=== PATIENT | male | born 1935 | race Caucasian/White ===

== ENCOUNTER → 2017-01-04 | Outpatient (CLI) | payer OTHER ==
[~2017-01-04] VITALS: Ht 182.9 cm; Wt 53.5 kg
[~2017-01-04] MED LIST: ACETYLCYSTE200 MG/M2 INH; ARTIFICIAL TEAR15 M1 OPHTHALMIC; ATROVENT HFA14 GM INH; EUCERIN CREME57 GM TOP; HEPARIN SO5000 UNIT2 SUBQ; IPRAT-ALBUT 0.5-3 ML IH; IPRATROPIUM BRO15 ML INH; ISOSOURCE 1.51000 ML PER TUBE; MELATONIN3 MG PER TUBE; MEROPENEM-500 MG/50 IVPB; NOVOLOG100 UNIT/M SUBQ; OMEPRAZOLE40 MG PER TUBE; PERIDEX15 ML SWISH&SPIT; REGLAN 10 MG TA10 MG IV PUSH; ROBITUSSIN100 MG/53 PER TUBE; TYLENOL325 MG PER TUBE; WATER PER TUBE
--- NOTE | ~2017-01-04 | EKG ---
[address] [place] [address] ELECTROCARDIOGRAM REPORT Name: JABIER NAVARRO Room #: [facility]#: [id number] Admission: 01/04/17 Attend Phys: Mario Trinidad MD, F Discharge: Date of : 37 Report #: [id number] THIS REPORT FOR: //name// [facility] Test Date: 2017-01-04 Test Time: 07:25:53 Pat Name: JABIER NAVARRO Department: Room: Gender: [employer] Worker: GREGORY : 1935 Requested By: Mario Trinidad Order Number: [id number] MD: Cedrick Rodriguez Measurements Intervals [place] Rate: 106 P: 51 MO: 160 QRS: 48 QRSD: 80 T: 69 QT: 325 QTc: 432 Interpretive Statements Sinus tachycardia Left ventricular hypertrophy Anterior Q waves, possibly due to LVH No previous ECG available for comparison Electronically Signed On 01-05-2017 8:43:29 CDT by Cedrick Rodriguez [email or web address] <ELECTRONICALLY SIGNED> By: Cedrick Rodriguez MD, [facility] 01/05/17 0843 0725 0725 Cedrick Rodriguez MD, FACC /EPI
--- NOTE | ~2017-01-04 | O ---
[facility] [place] [address] OPERATIVE REPORT Name: JABIER NAVARRO Room #: [facility].#: [id number] Admission: 01/04/17 Attend Phys: Mario Trinidad MD, F Discharge: Date of : 37 Report #: [id number] THIS REPORT FOR: //name// CC: FAM unknown Mario Trinidad DATE OF SERVICE: 01/04/2017 SURGEON: Mario Trinidad M.D. PREOPERATIVE DIAGNOSES: Malnutrition, dysphagia with aspiration, failure to thrive and severe dementia. POSTOPERATIVE DIAGNOSES: Malnutrition, dysphagia with aspiration, failure to thrive and severe dementia. PROCEDURE: EGD with 24-Eth[place]ian pull-type percutaneous endoscopic gastrostomy. ANESTHESIA: Monitored anesthetic care (propofol 80 mg and ketamine 50 mg). ESTIMATED BLOOD LOSS: 2 mL. SPECIMEN: None. COMPLICATIONS: None appreciated. INDICATIONS FOR PROCEDURE: This is a severely demented 81-year-old male patient who was malnourished and has dysphagia with recurrent episodes of aspiration. As a result of this, he has failure to thrive and PEG tube placement has been requested and is indicated. DESCRIPTION OF PROCEDURE: After the benefits and risks of the procedure were explained to the patient's durable power of disability attorney, which include but are not limited to risks of bleeding, infection, postoperative pain and postoperative expectations, informed consent was obtained. The patient was identified in the preoperative holding area. He was given IV antibiotics as documented in the chart in line with the SCIP protocol. The patient was then taken to the procedure room, where he was placed in the supine position. A time-out was performed to identify the correct patient and procedure. The patient was given IV sedation. A bite block was placed. When the patient was adequately sedated, the gastroscope was inserted into the patient's oropharynx and passed down the esophagus, where the GE junction and Z-line were measured at 40 cm from the teeth. The scope was advanced into the stomach, then beyond the pylorus to the duodenum. The scope was slowly withdrawn. The duodenal papilla was normal. The duodenum and stomach showed no polyps, masses, diverticuli or ulcers. The scope was retroflexed while in the antrum of the stomach and the cardia was [facility] [address] [place] [address] OPERATIVE REPORT Name: JABIER NAVARRO Room #: [facility]#: [id number] Admission: 01/04/17 Attend Phys: Mario Trinidad MD, F Discharge: Date of : 37 Report #: [id number]. A small hiatal hernia was present. The scope was then straightened and slightly withdrawn. The stomach was insufflated with carbon dioxide. Transillumination was present as the light from the gastroscope was easily seen through the patient's abdominal wall. There was good ballotability. The planned area for PEG tube placement was chosen to the left of midline in the upper abdomen. The abdomen was then prepped and draped in the standard sterile fashion. Local anesthetic was infiltrated into the skin and subcutaneous tissue. A small transverse incision was made. The 18-gauge angiocatheter was then inserted through the incision under direct visualization. The needle was removed and the looped guidewire was advanced through the catheter. The guidewire was then grasped with the scope and the guidewire and scope were slowly withdrawn through the patient's esophagus and out the oropharynx. The guidewire was released. The PEG tube was then connected to the guidewire and the guidewire was used to advance the PEG tube down the patient's esophagus and into the stomach. The tube was marked at 1.5 cm at the skin level. The gastroscope was reinserted into the patient's oropharynx, passed down the esophagus and into the stomach, where the inner flange was seen seated against the anterior stomach. The outer flange was then placed after cleansing the patient's skin. A dressing sponge was placed as well. The tube was cut to size and the clamp and fitting were applied. The stomach was decompressed with the gastroscope. The scope was then slowly withdrawn. The patient tolerated the procedure well. He was awakened and taken to the recovery room in stable condition, with no apparent complications. <ELECTRONICALLY SIGNED> By: Mario Trinidad MD, FACS 01/06/17 0735 [id number] 0042 Mario Trinidad MD, FACS /nt
== END | disposition home or self-care (01) ==
LOC: GI 07:10
DX: E46 Unspecified protein-calorie malnutrition (principal); R13.19 Other dysphagia; R62.7 Adult failure to thrive; F03.90 Unspecified dementia, unspecified severity, without behavioral disturbance, psychotic disturbance, mood disturbance, and anxiety; K44.9 Diaphragmatic hernia without obstruction or gangrene; K21.9 Gastro-esophageal reflux disease without esophagitis; D64.9 Anemia, unspecified; Z98.890 Other specified postprocedural states
CPT/HCPCS: 62110; 62900